=== PATIENT | female | born 1970 | race Caucasian/White ===

== ENCOUNTER 2019-12-12 20:08 | Emergency (ER) | payer SELFPAY ==
[2019-12-12 20:08] VITALS: BP 103/80; PULSE 126; RESP 14; TEMP 36.8; O2SAT 94; BMI 37.0
--- NOTE | 2019-12-12 20:11 | ED_ITS ---
HPI - Seizure General: Chief Complaint: Seizure Stated Complaint: seizure Time Seen by Provider: 12/12/19 20:09 Source: patient and EMS Mode of arrival: EMS Limitations: no limitations History of Present Illness: HPI Narrative: 49-year-old female who has a long history of seizures has had 2-3 seizures today. EMS was called states she had one seizure before arrival and has had one since as well. Patient given Versed in route and is had no more seizure-like activity. Patient is now awake and alert but slightly lethargic. She is able to answer my questions. She states she is supposed to be on Lamictal but has not taken it in 2 to 3 months as she has not filled her prescription. She denies any headache or fever. complaint: seizure Onset (ago): minute(s) Associated symptoms: Deny chest pain, chills or fever(s) Review of Systems Const: Denies: fever, chills, body aches or change in appetite Eyes: Denies: blurry vision or eye discomfort ENMT: Denies: throat pain or dental pain Card: Denies: chest pain Resp: Denies: shortness of breath GI: Denies: abdominal pain, nausea, vomiting or diarrhea : Denies: painful urination Musc: Denies: neck pain or back pain Skin/Breast: Denies: rash Neuro: Reports: seizure-like activity Psych: Denies: depression Black/Lymph: Denies: easy bruising All/Imm: Denies: hives PFS ED PFSH: Social History Smoking and tobacco status: current every day smoker Physical Exam Const: COMMON NORMALS: oriented x3 GENERAL APPEARANCE: lethargic ORIENTATION/CONSCIOUSNESS: Yes lethargic HENMT: COMMON NORMALS: normocephalic and head/scalp atraumatic HEAD & SCALP: normocephalic and atraumatic Eye: COMMON NORMALS: PERRL and EOMs intact bilaterally PUPIL: Yes PERRL Neck/C-Spine: COMMON NORMALS: full ROM and supple Chest: COMMONS NORMALS: inspection of chest normal and palpation of chest normal Resp: COMMON NORMALS: normal respiratory effort, no retractions, no use of accessory muscles and clear to auscultation bilaterally AUSCULTATION: clear to auscultation bilaterally Cardio: COMMON NORMALS: regular rate, regular rhythm and no murmurs RATE: regular rate RHYTHM: regular rhythm GI: COMMON NORMALS: normal to inspection, nondistended, normoactive bowel willard nds, soft to palpation, non-tender and no masses PALPATION: Yes soft Extremity: COMMON NORMALS: normal to inspection and full ROM Neuro: COMMON NORMALS: oriented x3, moves all extremities and no focal motor deficits SENSORIUM/ORIENTATION: Yes lethargic Psych: COMMON NORMALS: mental status grossly normal, thought process normal and cooperative THOUGHT PROCESS: normal thought process Skin: COMMON NORMALS: no rashes or lesions noted and no wounds GENERAL SKIN EXAM: no rashes or lesions noted Course Vital Signs: Vital signs: Vital Signs Temperature 98.3 F 12/12/19 20:08 Pulse Rate 104 H 12/12/19 23:03 Respiratory Rate 20 H 12/12/19 23:03 Blood Pressure 108/71 12/12/19 23:03 Pulse Oximetry 95 12/12/19 23:03 MDM - Seizure MDM Narrative: Medical decision making narrative: Patient presents here with seizure likely due to noncompliance on her medicines. Patient here is back to her normal mentation has had no seizures while she has been here. Patient's lab work and CT head are normal. Patient is stable for discharge and is to follow- up with primary care doctor in 3 to 5 days and return if worsening. Will prescribe her Lamictal and she is to take her meds. Lab Data: Labs: Lab Results 12/12/19 Range/Units 20:12 Sodium 142 (136-145) mmol/L Potassium 3.5 (3.5-5.1) mmol/L Chloride 102 (98-107) mmol/L Carbon Dioxide 21 L (22-29) mmol/L Anion Gap 22.5 H (5-19) BUN 15 (6-20) mg/dL Creatinine 1.3 H (0.5-0.9) mg/dL GFR Calculation 43.2 L (90-130) mL/min Glucose 136 H (65-115) mg/dL Calculated Osmolal ity 292 (285-295) mOsm/k g Calcium 9.5 (8.5-10.5) mg/dL Imaging Data^: CT Head: Attestation: I personally reviewed and interpreted this imaging study as follows: Radiologist's impression: [facility] [address] [place] [address] CT Scan Report Signed Patient: Coreen López Unit #: [id number] : 1970 Age/Sex: 49 / F ADM Date: 12/12/19 Loc: ER Room/Bed: Attending Dr: Ordering Provider/Ordering MD: Isaac Isabel MD Date of Service: 12/12/19 Procedure(s): CT head wo con* [id number] Accession Number(s): [id number] Report Number: [id number] PROCEDURE INFORMATION: Exam: CT Head Without Contrast Exam date and time: 12/12/2019 8:11 PM Age: 49 years old Clinical indication: Patient HX: Multiple seizures today. Has stopped taking seizure medications. TECHNIQUE: Imaging protocol: Computed tomography of the head without contrast. Radiation optimization: All CT scans at this facility use at least one of these dose optimization techniques: automated exposure control; mA and/or kV adjustment per patient size (includes targeted exams where dose is matched to clinical indication); or iterative reconstruction. COMPARISON: CT head wo con* [id number] 10/28/2018 8:15 PM RADIATION DOSE METRICS: Total DLP: 748.74 mGy-cm FINDINGS: Brain: No interval change since 10/28/2018. No visible evidence of active or acute intracranial pathologic process. Ventricles: Stable asymmetrical right temporal lobe atrophy with focal prominence of the right temporal horn. Bones/joints: Unremarkable. No acute fracture. Sinuses: Visualized sinuses are unremarkable. No fluid levels. Mastoid air cells: Visualized mastoid air cells are well aerated. Soft tissues: Unremarkable. CT/CT head wo con* [id number] IMPRESSION: Nonacute. Discharge Plan Discharge Patient Disposition: Home, Self-Care Clinical Impression: Generalized seizure Condition: Stable Prescriptions: New Lamictal 100 mg tablet 100 mg PO BID Qty: 60 RF: 0 Discharge Orders: Discharge Order (Routine); Ordered 12/12/19 Ordered By: Isaac Isabel Discharge Diet: Advance as tolerated Discharge Activity: Resume usual activity Patient Instructions: Recurrent Seizures Adult (ED) Discharge Date/Time: 12/12/19 23:09 Coding Level of Care Code ED Psychic Reader for Chg Fwd Exam Comprehensive
[2019-12-12 20:41] LABS: Anion Gap 22.5 (5-19); Blood Urea Nitrogen 15 mg/dL (6-20); Calcium 9.5 mg/dL (8.5-10.5); Carbon Dioxide 21 mmol/L (22-29); Chloride 102 mmol/L (98-107); Glomerular Filtration Rate 43.2 mL/min (90-130); Glucose 136 mg/dL (65-115); Osmolality Calculated 292 mOsm/kg (285-295); Potassium 3.5 mmol/L (3.5-5.1); Sodium 142 mmol/L (136-145)
[2019-12-12] MEDS: ondansetron 2 mg/ML SDV 2 mL 4 MG IVP (20:59)
[2019-12-12 21:00] VITALS: BP 96/70; PULSE 106; RESP 18; O2SAT 98
[2019-12-12 23:03] VITALS: BP 108/71; PULSE 104; RESP 20; O2SAT 95
== END 2019-12-12 23:09 | disposition home or self-care (01) ==
PROVIDERS: Emergency Provider Emergency Medicine
DX: G40.89 Other seizures (principal); F17.210 Nicotine dependence, cigarettes, uncomplicated
CPT/HCPCS: 12345; 70450; 80048; 96365; 96366; 96375; 99283; J2405

== ENCOUNTER 2020-02-14 18:24 | Emergency (ER) | payer SELFPAY ==
[2020-02-14 18:26] VITALS: BMI 45.7
[2020-02-14 18:30] VITALS: BP 115/76; PULSE 105; RESP 18; TEMP 36.9; O2SAT 94
--- NOTE | 2020-02-14 18:48 | ED_ITS ---
HPI - Seizure General: Chief Complaint: Seizure Stated Complaint: SEIZURES Time Seen by Provider: 02/14/20 18:47 Source: patient and other (Fianc?) History of Present Illness: HPI Narrative: 49-year-old female with known seizure disorder ran out of her Lamictal 2 to 3 days ago and there were no refills. Had witnessed seizure today. She complained of a headache over her right eye and then had tonic-clonic activity per her fianc? that this was also witnessed by EMS in route she was given Versed and it stopped. The same thing happened 2 months ago when she was seen in the emergency department she been out of her Lamictal then for several weeks. She did not fall or hit her head today. And has felt well until now. She is slightly sleepy but able to appropriately answer my questions and is oriented x3. Associated symptoms: Deny chest pain, chills or fever(s) Review of Systems General: Reports: 10 or more systems reviewed and unremarkable except in HPI and below Const: Denies: fever(s) or chills Eyes: Denies: change in vision ENMT: Denies: throat pain Card: Denies: chest pain Resp: Denies: dyspnea GI: Denies: abdominal pain, nausea, vomiting or change in bowel habits : Denies: difficulty voiding Musc: Denies: muscle weakness Skin/Breast: Denies: rash Neuro: Reports: headache(s) and seizure-like activity Psych: Denies: hopelessness or suicidal ideation Endo: Denies: polyuria Black/Lymph: Denies: easy bruising or easy bleeding All/Imm: Denies: urticaria PFSH ED PFSH: Social History Smoking and tobacco status: current every day smoker Physical Exam Const: COMMON NORMALS: no acute distress, patient oriented x3, alert and well nourished HENMT: COMMON NORMALS: normocephalic and Normal external nose present HEAD & SCALP: normocephalic NOSE: Normal external nose present MOUTH: no trismus Eye: COMMON NORMALS: EOMs intact bilaterally and conjunctivae normal CONJUNCTIVA: Yes conjunctivae normal Neck/C-Spine: COMMON NORMALS: full ROM, no lymphadenopathy and supple CERVICAL SPINE: Yes cervical ROM normal Lymph: LYMPHATIC: no lymphadenopathy noted Resp: COMMON NORMALS: normal respiratory effort, No retractions, No use of accessory muscles and clear to auscultation bilaterally EFFORT & INSPECTION: Yes able to speak in complete sentences AUSCULTATION: clear to auscultation bilaterally Cardio: COMMON NORMALS: regular rate and regular rhythm RATE: regular rate RHYTHM: regular rhythm GI: COMMON NORMALS: Normal to inspection, nondistended, normoactive bowel sounds present, Soft to palpation, non-tender and no masses INSPECTION: Yes normal to inspection AUSCULTATION: Yes normoactive bowel sounds PALPATION: Yes Soft to palpation, No Guarding due to palpation present (GI) and No Rigid due to palpation Back/Pelvis: OTHER: Normal range of motion Extremity: GENERAL: Yes normal exam except as noted Neuro: COMMON NORMALS: patient oriented x3 and CN's II-XII intact bilaterally SENSORIUM/ORIENTATION: Yes alert SPEECH: speech normal Psych: COMMON NORMALS: mental status grossly normal Skin: COMMON NORMALS: no rashes or lesions noted GENERAL SKIN EXAM: no rashes or lesions noted Course Vital Signs: Vital signs: Vital Signs Temperature 98.5 F 02/14/20 18:30 Pulse Rate 92 02/14/20 20:04 Respiratory Rate 14 02/14/20 20:04 Blood Pressure 122/71 02/14/20 20:04 Pulse Oximetry 98 02/14/20 20:04 MDM - Seizure MDM Narrative: Medical decision making narrative: 49-year-old with known seizure disorder out of her Lamictal for 2 to 3 days received Versed IV from EMS with cessation of her seizure we will go ahead and get CT head since her headache is new if that looks all right we will discharged with Lamictal fianc? states they are able to get it with good Rx at $10 but there were no refills on her old prescription and they are already working on Medicaid and getting neurology follow-up Lab Data: Labs: Lab Results 02/14/20 02/14/20 02/14/20 Range/Units 17:28 17:28 18:52 WBC 9.7 (4.0-10.0) 10^3/ uL RBC 4.86 (4.1-5.3) 10^6/u L Hgb 14.7 (11.5-15.3) g/dL Hct 46.7 (37.0-47.0) % MCV 96.1 (81-99) fL MCH 30.2 (28.0-34.0) pg MCHC 31.5 (30.0-36.0) g/dL RDW 13.2 (12.1-15.1) % Plt Count 204 (130-400) 10^3/c mm MPV 12.6 H (7.4-10.4) fL Neut % (Auto) 36.8 % Lymph % (Auto) 53.6 % [place] % (Auto) 6.7 % Eos % (Auto) 2.3 % Baso % (Auto) 0.4 % Neut # (Auto) 3.56 (1.8-7.7) 10^3/u L Lymph # (Auto) 5.2 H (0.8-4.8) 10^3/u L [place] # (Auto) 0.7 (0.2-0.9) 10^3/u L Eos # (Auto) 0.2 (0.0-0.8) 10^3/u L Baso # (Auto) 0.0 (0.0-0.1) 10^3/u L Nucleated RBC % (a uto) 0 % Nucleated RBCs # 0.0 /100WBC Sodium 141 (136-145) mmol/L Potassium 3.6 (3.5-5.1) mmol/L Chloride 102 (98-107) mmol/L Carbon Dioxide 16 L (22-29) mmol/L Anion Gap 26.6 H (5-19) BUN 17 (6-20) mg/dL Creatinine 1.3 H (0.5-0.9) mg/dL GFR Calculation 43.2 L (90-130) mL/min Glucose 171 H (65-115) mg/dL POC Glucose 97 (70-110) mg/dL Calculated Osmolal ity 292 (285-295) mOsm/k g Calcium 10.0 (8.5-10.5) mg/dL Total Bilirubin 0.2 (0.15-1.2) mg/dL AST 22 (0-32) U/L ALT 14 (0-33) U/L Alkaline Phosphata se 55 (35-105) IU/L Total Protein 7.1 (6.6-8.7) g/dL Albumin 4.5 (3.5-5.2) g/dL Globulin 2.6 (1.3-4.6) g/dL Imaging Data^: CT Head: Radiologist's impression: [address] [address] [address] Scan Report Signed Patient: Coreen López #: [id number] : 1970Acct#:[id number] Age/Sex: 49 / FADM Date: 02/14/20 Loc: ERRoom/Bed: Attending Dr: Ordering Provider/Ordering MD: Kae Street MD Date of Service: 02/14/20 Procedure(s): CT head wo con* [id number] Accession Number(s): [id number] Report Number: [id number] PROCEDURE INFORMATION: Exam: CT Head Without Contrast Exam date and time: 02/14/2020 7:02 PM Age: 49 years old Clinical indication: Condition or disease; Convulsions or seizures; Unspecified; Additional info: LEOS, seizure TECHNIQUE: Imaging protocol: Computed tomography of the head without contrast. Radiation optimization: All CT scans at this facility use at least one of these dose optimization techniques: automated exposure control; mA and/or kV adjustment per patient size (includes targeted exams where dose is matched to clinical indication); or iterative reconstruction. COMPARISON: CT head wo con* [id number] 12/12/2019 9:19 PM RADIATION DOSE METRICS: Total DLP (mGy-cm): 752.74 FINDINGS: Brain: The right cerebellar tonsil extends just below the level of the foramen magnum. Findings are stable. 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 Findings are stable. No acute intracranial hemorrhage. No acute infarct. No intra-axial or extra-axial masses. Johnson-white matter differentiation is preserved. No cerebral edema. No extra-axial fluid collections. No midline shift. Ventricles: Stable mild asymmetry of the lateral ventricles. This is likely congenital in nature. Bones/joints: No acute fracture. Sinuses: Visualized paranasal sinuses are clear. Mastoid air cells: Stable small amount of fluid in the right and left mastoid air cells. Orbits: No acute abnormality in the visualized orbits. Soft tissues: No acute abnormality of the extracranial soft tissues. CT/CT head wo con* [id number] IMPRESSION: 1. No acute abnormality of the brain. 2. Low lying right cerebellar tonsil. Findings are stable. 3. 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 Findings are stable. 4. Stable small amount of fluid in the right and left mastoid air cells. 5. Incidental/nonacute findings are listed in the report. Radiation Dose CTDIVOL = (mGy): DLP = 752.74 (mGy-cm) Discharge Plan Discharge Patient Disposition: Home, Self-Care Clinical Impression: Epileptic seizure Condition: Stable Prescriptions: New Lamictal 100 mg tablet 100 mg PO BID 30 Days Qty: 60 RF: 0 No Action lamotrigine [Lamictal] 100 mg tablet 100 mg PO BID Qty: 60 RF: 0 Patient Instructions: Recurrent Seizures Adult (ED) Activity Restrictions/Additional Instructions: Keep your follow up appointments with any doctors that you have. take your lamictal Interventions: ED Discharge Assessment Last Done: 02/14/20 20:04 ED Charges Last Done: 02/14/20 20:04 Discharge Date/Time: 02/14/20 20:09 Coding Level of Care Code ED Land Management Forester for [place] Fwd Exam Comprehensive
--- NOTE | 2020-02-14 18:55 | CTR_ITS ---
PROCEDURE INFORMATION: Exam: CT Head Without Contrast Exam date and time: 02/14/2020 7:02 PM Age: 49 years old Clinical indication: Condition or disease; Convulsions or seizures; Unspecified; Additional info: LEOS, seizure TECHNIQUE: Imaging protocol: Computed tomography of the head without contrast. Radiation optimization: All CT scans at this facility use at least one of these dose optimization techniques: automated exposure control; mA and/or kV adjustment per patient size (includes targeted exams where dose is matched to clinical indication); or iterative reconstruction. COMPARISON: CT head wo con* [id number] 12/12/2019 9:19 PM RADIATION DOSE METRICS: Total DLP (mGy-cm): 752.74 FINDINGS: Brain: The right cerebellar tonsil extends just below the level of the foramen magnum. Findings are stable. 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 Findings are stable. No acute intracranial hemorrhage. No acute infarct. No intra-axial or extra-axial masses. Johnson-white matter differentiation is preserved. No cerebral edema. No extra-axial fluid collections. No midline shift. Ventricles: Stable mild asymmetry of the lateral ventricles. This is likely congenital in nature. Bones/joints: No acute fracture. Sinuses: Visualized paranasal sinuses are clear. Mastoid air cells: Stable small amount of fluid in the right and left mastoid air cells. Orbits: No acute abnormality in the visualized orbits. Soft tissues: No acute abnormality of the extracranial soft tissues. CT/CT head wo con* [id number] IMPRESSION: 1. No acute abnormality of the brain. 2. Low lying right cerebellar tonsil. Findings are stable. 3. 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 Findings are stable. 4. Stable small amount of fluid in the right and left mastoid air cells. 5. Incidental/nonacute findings are listed in the report. Radiation Dose CTDIVOL = (mGy): DLP = 752.74 (mGy-cm)
[2020-02-14 18:56] LABS: Glucose Point of Care 97 mg/dL (70-110)
[2020-02-14 19:05] LABS: Basophils % 0.4 %; Eosinophils # 0.2 10^3/uL (0.0-0.8); Eosinophils % 2.3 %; Hematocrit 46.7 % (37.0-47.0); Hemoglobin 14.7 g/dL (11.5-15.3); Lymphocytes # 5.2 10^3/uL (0.8-4.8); Lymphocytes % 53.6 %; Mean Corpuscular HGB Conc 31.5 g/dL (30.0-36.0); Mean Corpuscular Hemoglobin 30.2 pg (28.0-34.0); Mean Corpuscular Volume 96.1 fL (81-99); Mean Platelet Volume 12.6 fL (7.4-10.4); Monocytes # 0.7 10^3/uL (0.2-0.9); Monocytes % 6.7 %; Neutrophils # 3.56 10^3/uL (1.8-7.7); Neutrophils % 36.8 %; Nucleated Red Blood Cells % 0 %; Platelet Count 204 10^3/cmm (130-400); Red Blood Count 4.86 10^6/uL (4.1-5.3); Red Cell Distribution Width 13.2 % (12.1-15.1); White Blood Count 9.7 10^3/uL (4.0-10.0)
--- NOTE | 2020-02-14 19:05 | PC.NURSE ---
Report received from SILVIO Justin and care transferred to SILVIO Bear
[2020-02-14] MEDS: lamoTRIgine 100 mg Tablet PO (19:17)
[2020-02-14] MEDS: acetaminophen 500 mg Tablet 1000 MG PO (19:17)
[2020-02-14 19:19] VITALS: BP 95/71; PULSE 97; RESP 14; O2SAT 98
[2020-02-14 19:28] LABS: Alanine Aminotransferase 14 U/L (0-33); Albumin Level 4.5 g/dL (3.5-5.2); Alkaline Phosphatase 55 IU/L (35-105); Anion Gap 26.6 (5-19); Aspartate Amino Transferase 22 U/L (0-32); Blood Urea Nitrogen 17 mg/dL (6-20); Carbon Dioxide 16 mmol/L (22-29); Chloride 102 mmol/L (98-107); Globulin 2.6 g/dL (1.3-4.6); Glomerular Filtration Rate 43.2 mL/min (90-130); Glucose 171 mg/dL (65-115); Osmolality Calculated 292 mOsm/kg (285-295); Potassium 3.6 mmol/L (3.5-5.1); Sodium 141 mmol/L (136-145); Total Bilirubin 0.2 mg/dL (0.15-1.2); Total Protein 7.1 g/dL (6.6-8.7)
[2020-02-14 19:50] VITALS: BP 115/69
[2020-02-14] MEDS: ondansetron 2 mg/ML SDV 2 mL 4 MG IVP (19:59)
[2020-02-14 20:03] VITALS: BP 128/86; PULSE 92; RESP 17; O2SAT 98
[2020-02-14 20:04] VITALS: BP 122/71; PULSE 92; RESP 14; O2SAT 98
== END 2020-02-14 20:09 | disposition home or self-care (01) ==
PROVIDERS: Emergency Provider Emergency Medicine
DX: G40.909 Epilepsy, unspecified, not intractable, without status epilepticus (principal); F17.210 Nicotine dependence, cigarettes, uncomplicated
CPT/HCPCS: 12345; 36415; 36416; 70450; 80053; 82962; 85025; 96374; 96375; 99283; J2405

== ENCOUNTER → 2020-11-25 12:06 | Outpatient (BNVA) | payer SELFPAY | PROVIDERS: Visit Provider Specialist | DX: G40.909 Epilepsy, unspecified, not intractable, without status epilepticus (principal); G40.109 Localization-related (focal) (partial) symptomatic epilepsy and epileptic syndromes with simple partial seizures, not intractable, without status epilepticus; F17.210 Nicotine dependence, cigarettes, uncomplicated | CPT/HCPCS: 99205 ==

== ENCOUNTER 2020-12-03 07:54 | Outpatient (CLI) | payer SELFPAY ==
--- NOTE | 2020-12-03 08:00 | MR_ITS ---
WS: [id number] MRI HEAD WITHOUT CONTRAST TECHNIQUE: Sagittal T1, T2 axial, T2 axial FLAIR, axial and coronal T1 images, axial susceptibility w eighted imaging, axial diffusion weighted images, and coronal T2 images were obtained. CLINICAL INFORMATION: G40.909 - Epilepsy, unspecified, not intractable, without... COMPARISON: CT January 2020 and MRI 2008 and 2010 FINDINGS: No restricted diffusion to suggest acute ischemia. Ventricular system and basal cisterns are patent. No hydrocephalus. Normal vascular flow voids at the skull base. Mastoid air cells well aerated. Reten tion cyst right maxillary sinus. Mild mucosal thickening ethmoid air cells. No hemosiderin on suscept ibly weighted images. Normal optic chiasm and pituitary infundibulum. Normal cavernous sinuses and Meckel's cave. Left temporal lobe and hippocampal formation is normal in appearance. Cystic encephalomalacia along t he undersurface of the right temporal lobe with mild hippocampal atrophy. This is unchanged in appear ance from 2010 and 2008. A few tiny foci of T2 hyperintensity in the periventricular and subcortical white matter unchanged th e prior examinations of doubtful clinical significance but can be seen with minimal small vessel blackman ges with migraine headaches. Cerebellar tonsillar ectopia unchanged the prior examinations measuring approximately 5 mm below the foramen magnum. Mild crowding at the cervicomedullary junction. No hydrocephalus. MR/MR head wo con* [id number] IMPRESSION: 1. No evidence of restricted diffusion to suggest acute ischemia. 2. Cystic encephalomalacia with gliosis involving the undersurface of the righ t anterior temporal lobe likely due to prior ischemia or trauma. This is unchan ged since 2010. Mild atrophy involving the right mesial right temporal lobe and right hippocampus. 3. 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 4. No hemosiderin on susceptibly weighted images. 5. Minimal subcortical and periventricular white matter changes of doubtful cl inical significance but can be seen with minimal small vessel changes with migr bianca headaches. 6. Retention cyst right maxillary sinus.
== END 2020-12-03 07:55 | disposition home or self-care (01) ==
LOC: RADSHAW 07:57
PROVIDERS: PCP Physician Assistant Medical; Visit Provider Specialist
DX: G40.909 Epilepsy, unspecified, not intractable, without status epilepticus (principal); M27.40 Unspecified cyst of jaw; G31.9 Degenerative disease of nervous system, unspecified; G93.89 Other specified disorders of brain
CPT/HCPCS: 70551

== ENCOUNTER → 2020-12-11 13:06 | Outpatient (BNVA) | payer SELFPAY | PROVIDERS: PCP Physician Assistant Medical; Referring Provider Specialist; Visit Provider Specialist | DX: G40.109 Localization-related (focal) (partial) symptomatic epilepsy and epileptic syndromes with simple partial seizures, not intractable, without status epilepticus (principal); F17.210 Nicotine dependence, cigarettes, uncomplicated | CPT/HCPCS: 95816 ==

== ENCOUNTER 2021-03-26 17:17 | Emergency (ER) | payer SELFPAY ==
[2021-03-26 17:22] VITALS: BP 124/82; PULSE 76; RESP 16; TEMP 37; O2SAT 100; BMI 26.6
--- NOTE | 2021-03-26 17:24 | ECG_ITS ---
[facility] Test Date: 2021-03-26 Pat Name: Coreen López Department: Room: Gender: Female [place] Nurse: : 1970 Requested By: Bora Alonso Order Number: [id number] Reading MD: MARILU SHAY Measurements Intervals Melvin Rate: 72 P: 43 NE: 199 QRS: 4 QRSD: 107 T: 41 QT: 408 QTc: 447 Interpretive Statements SINUS RHYTHM POSSIBLE LEFT ATRIAL ENLARGEMENT [-0.1mV P-WAVE IN V1/V2] LOW QRS VOLTAGE IN PRECORDIAL LEADS [QRS DEFLECTION < 1.0 mV IN CHEST LEADS] PATTERN CONSISTENT WITH PULMONARY DISEASE INCOMPLETE RIGHT BUNDLE BRANCH BLOCK [90+ ms QRS DURATION, TERMINAL R IN V1/V2, 40+ ms S IN I/aVL/V4/V5/V6] Compared to ECG 10/28/2018 20:28:14 Incomplete right bundle-branch block now present Myocardial infarct finding no longer present Electronically Signed On 03-26-2021 21:07:13 CDT by MARILU SHAY [email or web address]
--- NOTE | 2021-03-26 17:24 | XRR_ITS ---
PROCEDURE INFORMATION: Exam: XR Chest Exam date and time: 03/26/2021 5:24 PM Age: 50 years old Clinical indication: Cough; Additional info: Dyspnea/cough TECHNIQUE: Imaging protocol: XR of the chest. Views: 1 view. COMPARISON: No relevant prior studies available. FINDINGS: Lungs: Atelectasis or scar in the lingula. The lungs are otherwise clear. Pleural spaces: Unremarkable. No pleural effusion. No pneumothorax. Heart/Mediastinum: Unremarkable. No cardiomegaly. Bones/joints: Unremarkable. XR/XR chest 1V portable [id number] IMPRESSION: No acute finding.
[2021-03-26 17:36] VITALS: BP 124/82; PULSE 76; RESP 16; O2SAT 97
--- NOTE | 2021-03-26 17:41 | ED_ITS ---
Documented by User: Bora Isabel DO 04/01/21 06:51 HPI - Seizure General: Chief Complaint: Seizure Stated Complaint: seizures *4 today Time Seen by Provider: 03/26/21 17:23 History of Present Illness: HPI Narrative: 50-year-old female with a history of seizures presents emergency room mildly postictal. He has a history of seizures last seizure was little over a month ago he sees Dr. Navarro. He cannot really tell me what precipitated she denies any recent change in medications or any missed doses. Denies any alcohol use. Patient was given 10 mg of Versed in route. complaint: seizure Onset (ago): minute(s) Description of Episode: loss of consciousness Witnessed: Yes - by Bystander Trauma: No Seizure History: Yes Place: Home Associated symptoms: Reports confusion; Deny chest pain, chills, cough, diaphoresis, fever(s), anorexia, malaise, rash, short of breath, syncope or weakness Treatments prior to arrival: none Review of Systems General: Reports: ROS unobtainable due to medical condition and ROS unobtai nable due to mental status Const: Denies: fever(s), chills, malaise or diaphoresis Card: Denies: chest pain or syncope Neuro: Reports: confusion PFSH ED PFSH: Family History Father Cancer Diabetes Mother Cancer Lung disease Social History Smoking and tobacco status: current every day smoker Alcohol intake: never History of recent travel: No Physical Exam Const: COMMON NORMALS: no acute distress GENERAL APPEARANCE: cooperative and comfortable ORIENTATION/CONSCIOUSNESS: Yes oriented to person, Yes oriented to place and Yes oriented to time HENMT: COMMON NORMALS: normocephalic, atraumatic and hearing grossly normal bilaterally HEAD & SCALP: normocephalic and atraumatic Neck/C-Spine: COMMON NORMALS: no JVD Resp: COMMON NORMALS: normal respiratory effort, No retractions, No use of accessory muscles and clear to auscultation bilaterally AUSCULTATION: clear to auscultation bilaterally Cardio: COMMON NORMALS: no JVD, regular rate, regular rhythm and No murmurs present (Cardio) RATE: regular rate RHYTHM: regular rhythm GI: COMMON NORMALS: Soft to palpation and No hepatosplenomegaly present AUSCULTATION: Yes normoactive bowel sounds PALPATION: Yes Soft to palpation, No Tenderness to palpation present (GI), No Guarding due to palpation present (GI) and Yes No hepatosplenomegaly present Extremity: COMMON NORMALS: normal to inspection, capillary refill normal, no clubbing, cyanosis or edema, no calf tenderness and no pedal edema Neuro: SENSORIUM/ORIENTATION: Yes oriented to person, Yes oriented to place and Yes oriented to time Skin: COMMON NORMALS: no rashes or lesions noted GENERAL SKIN EXAM: no rashes or lesions noted Course Vital Signs: Vital signs: Vital Signs Temperature 98.6 F 03/26/21 17:22 Pulse Rate 87 03/26/21 21:03 Respiratory Rate 16 03/26/21 21:03 Blood Pressure 116/77 03/26/21 21:03 Pulse Oximetry 96 03/26/21 21:03 MDM - Seizure MDM Narrative: Medical decision making narrative: Turned over to Dr. Isabel at change of shift see his notes for final diagnosis disposition Lab Data: Labs: Lab Results 03/26/21 03/26/21 Range/Units 17:13 17:13 WBC 5.9 (4.0-10.0) 10^3/ uL RBC 4.28 (4.1-5.3) 10^6/u L Hgb 13.5 (11.5-15.3) g/dL Hct 41.9 (37.0-47.0) % MCV 97.9 (81-99) fl MCH 31.5 (28.0-34.0) pg MCHC 32.2 (30.0-36.0) g/dL RDW 15.0 (12.1-15.1) % Plt Count 204 (130-400) 10^3/c mm MPV 12.3 H (7.4-10.4) fL Neut % (Auto) 63.7 % Lymph % (Auto) 26.9 % Grayson % (Auto) 6.3 % Eos % (Auto) 2.4 % Baso % (Auto) 0.5 % Neut # (Auto) 3.75 (1.8-7.7) 10^3/u L Lymph # (Auto) 1.6 (0.8-4.8) 10^3/u L Grayson # (Auto) 0.4 (0.2-0.9) 10^3/u L Eos # (Auto) 0.1 (0.0-0.8) 10^3/u L Baso # (Auto) 0.0 (0.0-0.1) 10^3/u L Nucleated RBC % (a uto) 0 % Nucleated RBCs # 0.0 /100WBC Sodium 143 (136-145) mmol/L Potassium 3.6 (3.5-5.1) mmol/L Chloride 105 (98-107) mmol/L Carbon Dioxide 20 L (22-29) mmol/L Anion Gap 21.6 H (5-19) BUN 12 (6-20) mg/dL Creatinine 1.0 H (0.5-0.9) mg/dL GFR Calculation 58.2 L (90-130) mL/min Glucose 88 (65-115) mg/dL Calculated Osmolal ity 295 (285-295) mOsm/k g Calcium 9.0 (8.5-10.5) mg/dL Total Bilirubin 0.3 (0.15-1.2) mg/dL AST 14 (0-32) U/L ALT 6 (0-33) U/L Alkaline Phosphata se 67 (35-105) IU/L Creatine Kinase 63 (26-192) U/L Total Protein 6.6 (6.6-8.7) g/dL Albumin 4.2 (3.5-5.2) g/dL Globulin 2.4 (1.3-4.6) g/dL Discharge Plan Discharge Patient Disposition: Home Clinical Impression: Generalized seizure Condition: Stable Prescriptions: No Action topiramate [Topamax] 100 mg tablet 100 mg PO BID RF: 0 albuterol sulfate 90 mcg/actuation HFA aerosol inhaler 2 puff inhalation Q6H PRN (Reason: Shortness Of Breath) RF: 0 fluoxetine [Prozac] 10 mg capsule 10 mg PO DAILY RF: 0 zonisamide [Zonegran] 100 mg capsule 400 mg PO DAILY 30 Days Qty: 120 RF: 3 lamotrigine [Lamictal] 100 mg tablet 100 mg PO BID Qty: 60 RF: 0 Discharge Orders: Discharge ED (Routine); Ordered 03/26/21 Ordered By: Isaac Isabel Referrals: Catalino Arce [Primary Care Provider] - 1-3 days Discharge Diet: Advance as tolerated Discharge Activity: Resume usual activity Patient Instructions: Recurrent Seizures Adult (ED) Coding Level of Care Code ED Manager Critical Care for Chg Fwd Exam Comprehensive Documented by User: Isaac Isabel MD 03/26/21 21:09 HPI - Seizure General: Chief Complaint: Seizure Stated Complaint: seizures *4 today Time Seen by Provider: 03/26/21 17:23 PFSH ED PFSH: Family History Father Cancer Diabetes Mother Cancer Lung disease Social History Smoking and tobacco status: current every day smoker Alcohol intake: never History of recent travel: No Course Vital Signs: Vital signs: Vital Signs Temperature 98.6 F 03/26/21 17:22 Pulse Rate 87 03/26/21 21:03 Respiratory Rate 16 03/26/21 21:03 Blood Pressure 116/77 03/26/21 21:03 Pulse Oximetry 96 03/26/21 21:03 MDM - Seizure MDM Narrative: Medical decision making narrative: Patient presents here with a seizure. She has history of seizure disorder. She is well-appearing here and feels improved and stable for discharge. She is to follow-up with Dr. Navarro as scheduled and return if worsening. Lab Data: Labs: Lab Results 03/26/21 03/26/21 Range/Units 17:13 17:13 WBC 5.9 (4.0-10.0) 10^3/ uL RBC 4.28 (4.1-5.3) 10^6/u L Hgb 13.5 (11.5-15.3) g/dL Hct 41.9 (37.0-47.0) % MCV 97.9 (81-99) fl MCH 31.5 (28.0-34.0) pg MCHC 32.2 (30.0-36.0) g/dL RDW 15.0 (12.1-15.1) % Plt Count 204 (130-400) 10^3/c mm MPV 12.3 H (7.4-10.4) fL Neut % (Auto) 63.7 % Lymph % (Auto) 26.9 % Grayson % (Auto) 6.3 % Eos % (Auto) 2.4 % Baso % (Auto) 0.5 % Neut # (Auto) 3.75 (1.8-7.7) 10^3/u L Lymph # (Auto) 1.6 (0.8-4.8) 10^3/u L Grayson # (Auto) 0.4 (0.2-0.9) 10^3/u L Eos # (Auto) 0.1 (0.0-0.8) 10^3/u L Baso # (Auto) 0.0 (0.0-0.1) 10^3/u L Nucleated RBC % (a uto) 0 % Nucleated RBCs # 0.0 /100WBC Sodium 143 (136-145) mmol/L Potassium 3.6 (3.5-5.1) mmol/L Chloride 105 (98-107) mmol/L Carbon Dioxide 20 L (22-29) mmol/L Anion Gap 21.6 H (5-19) BUN 12 (6-20) mg/dL Creatinine 1.0 H (0.5-0.9) mg/dL GFR Calculation 58.2 L (90-130) mL/min Glucose 88 (65-115) mg/dL Calculated Osmolal ity 295 (285-295) mOsm/k g Calcium 9.0 (8.5-10.5) mg/dL Total Bilirubin 0.3 (0.15-1.2) mg/dL AST 14 (0-32) U/L ALT 6 (0-33) U/L Alkaline Phosphata se 67 (35-105) IU/L Creatine Kinase 63 (26-192) U/L Total Protein 6.6 (6.6-8.7) g/dL Albumin 4.2 (3.5-5.2) g/dL Globulin 2.4 (1.3-4.6) g/dL Discharge Plan Discharge Patient Disposition: Home Clinical Impression: Generalized seizure Condition: Stable Prescriptions: No Action topiramate [Topamax] 100 mg tablet 100 mg PO BID RF: 0 albuterol sulfate 90 mcg/actuation HFA aerosol inhaler 2 puff inhalation Q6H PRN (Reason: Shortness Of Breath) RF: 0 fluoxetine [Prozac] 10 mg capsule 10 mg PO DAILY RF: 0 zonisamide [Zonegran] 100 mg capsule 400 mg PO DAILY 30 Days Qty: 120 RF: 3 lamotrigine [Lamictal] 100 mg tablet 100 mg PO BID Qty: 60 RF: 0 Discharge Orders: Discharge ED (Routine); Ordered 03/26/21 Ordered By: Isaac Isabel Referrals: Catalino Arce [Primary Care Provider] - 1-3 days Discharge Diet: Advance as tolerated Discharge Activity: Resume usual activity Patient Instructions: Recurrent Seizures Adult (ED) Coding Level of Care Code ED Manager Critical Care for Lionel Fwd Exam Comprehensive
[2021-03-26] MEDS: ondansetron 2 mg/ML SDV 2 mL 4 MG IVP ×2 (17:51→19:05)
[2021-03-26 17:52] LABS: Basophils % 0.5 %; Eosinophils # 0.1 10^3/uL (0.0-0.8); Eosinophils % 2.4 %; Hematocrit 41.9 % (37.0-47.0); Hemoglobin 13.5 g/dL (11.5-15.3); Lymphocytes # 1.6 10^3/uL (0.8-4.8); Lymphocytes % 26.9 %; Mean Corpuscular HGB Conc 32.2 g/dL (30.0-36.0); Mean Corpuscular Hemoglobin 31.5 pg (28.0-34.0); Mean Corpuscular Volume 97.9 fl (81-99); Mean Platelet Volume 12.3 fL (7.4-10.4); Monocytes # 0.4 10^3/uL (0.2-0.9); Monocytes % 6.3 %; Neutrophils # 3.75 10^3/uL (1.8-7.7); Neutrophils % 63.7 %; Nucleated Red Blood Cells % 0 %; Platelet Count 204 10^3/cmm (130-400); Red Blood Count 4.28 10^6/uL (4.1-5.3); White Blood Count 5.9 10^3/uL (4.0-10.0)
[2021-03-26] MEDS: sodium chloride 0.9% 1,000 ML 999 ML IV (17:52)
[2021-03-26 17:58] VITALS: BP 117/78; PULSE 68; RESP 18; O2SAT 96
[2021-03-26] MEDS: acetaminophen 1,000 MG/100 ML PIGGYBACK 400 MG IV (18:40)
[2021-03-26 18:44] VITALS: BP 105/64; PULSE 66; RESP 18; O2SAT 100
[2021-03-26 18:44] LABS: Alanine Aminotransferase 6 U/L (0-33); Albumin Level 4.2 g/dL (3.5-5.2); Alkaline Phosphatase 67 IU/L (35-105); Anion Gap 21.6 (5-19); Aspartate Amino Transferase 14 U/L (0-32); Blood Urea Nitrogen 12 mg/dL (6-20); Carbon Dioxide 20 mmol/L (22-29); Chloride 105 mmol/L (98-107); Creatine Phosphokinase 63 U/L (26-192); Globulin 2.4 g/dL (1.3-4.6); Glomerular Filtration Rate 58.2 mL/min (90-130); Glucose 88 mg/dL (65-115); Osmolality Calculated 295 mOsm/kg (285-295); Potassium 3.6 mmol/L (3.5-5.1); Sodium 143 mmol/L (136-145); Total Bilirubin 0.3 mg/dL (0.15-1.2); Total Protein 6.6 g/dL (6.6-8.7)
[2021-03-26] MEDS: diphenhydrAMINE 50 mg/mL SDV 1mL 25 MG IVP (19:45)
[2021-03-26] MEDS: metoclopramide 5 mg/mL SDV 2 mL IVP (19:45)
[2021-03-26 21:03] VITALS: BP 116/77; PULSE 87; RESP 16; O2SAT 96
== END 2021-03-26 20:46 | disposition home or self-care (01) ==
PROVIDERS: Family Medicine; Emergency Provider Emergency Medicine; PCP Physician Assistant Medical
DX: G40.409 Other generalized epilepsy and epileptic syndromes, not intractable, without status epilepticus (principal); F17.200 Nicotine dependence, unspecified, uncomplicated
CPT/HCPCS: 71045; 80053; 82550; 85025; 93005; 96361; 96374; 96375; 96376; 99284; J1200; J2405; J2765; J7030

== ENCOUNTER → 2021-07-08 08:32 | Outpatient (BNVA) | payer SELFPAY | PROVIDERS: PCP Physician Assistant Medical; Visit Provider Specialist | DX: G40.109 Localization-related (focal) (partial) symptomatic epilepsy and epileptic syndromes with simple partial seizures, not intractable, without status epilepticus (principal); Z71.85 Encounter for immunization safety counseling; Z91.19 Patient's noncompliance with other medical treatment and regimen | CPT/HCPCS: 99214; 99215 ==